=== PATIENT | female | born 1985 | race African-American/Black ===

== ENCOUNTER 2017-02-04 06:10 | Day surgery (SDC) | payer OTHER ==
[2017-01-22 11:22] VITALS: BMI 28.8
[2017-02-04] MEDS ORDERED: BUPIVACAINE HCL/PF 2.5 MG/ML - 30 ML VIAL IJ ONE (07:09)
[2017-02-04] MEDS ORDERED: BUPIVACAINE HCL/EPINEPHRINE/PF 30 ML VIAL IJ ONE (07:09)
[2017-02-04] MEDS ORDERED: EPINEPHrine 1:1,000 1 MG/1 ML - 30ML VIAL (INJECTION) ONE (07:09)
[2017-02-04] MEDS ORDERED: MIDAZOLAM HCL 2 MG/2 ML SINGLE DOSE VIAL ONE (07:22)
[2017-02-04] MEDS ORDERED: PROPOFOL 20 ML ONE ×3 (07:22→08:32)
[2017-02-04] MEDS ORDERED: LIDOCAINE HCL/PF 2% SDV 5ML VIAL ONE ×2 (07:24→08:31)
[2017-02-04] MEDS ORDERED: DEXAMETHASONE SOD PHOSPHATE 4 MG/1 ML VIAL ONE (07:43)
[2017-02-04] MEDS ORDERED: ONDANSETRON 4 MG/2 ML VIAL ONE ×2 (07:43→09:04)
[2017-02-04] MEDS ORDERED: KETOROLAC TROMETHAMINE 30 MG/1 ML VIAL ONE (07:47)
[2017-02-04] MEDS ORDERED: SUCCINYLCHOLINE CHLORIDE 200 MG/10 ML VIAL ONE (07:58)
[2017-02-04] MEDS ORDERED: DESFLURANE GAS 240 ML BOTTLE IH ONE (08:33)
[2017-02-04] MEDS ORDERED: oxyCODONE HCL 5 MG TABLET PO PRN (09:02)
[2017-02-04] MEDS ORDERED: PROMETHAZINE HCL 25 MG/1 ML VIAL IVPUSH PRN (09:02)
[2017-02-04] MEDS ORDERED: LACTATED RINGERS SOLUTION 1,000 ML IV SCH (09:15)
[2017-02-04 12:13] VITALS: PULSE 65
[2017-02-04 12:20] VITALS: BP 124/72; TEMP 98.1
--- NOTE | 2017-02-04 13:57 | OP ---
DATE OF OPERATION: 02/04/2017 PREOPERATIVE DIAGNOSIS: Right knee medial meniscal tear. POSTOPERATIVE DIAGNOSIS: Right knee medial meniscal tear. PROCEDURE: Right knee arthroscopy with partial medial meniscectomy. SURGEON: William Schmidt MD [employer] TENDER: Meenu Lopez ANESTHESIA TYPE: General. POSTOPERATIVE CONDITION: Stable. COMPLICATIONS: None. TOURNIQUET TIME: Forty-four minutes. INDICATION: This is a pleasant 31-year-old female who is having right-sided medial knee pain. After an MRI demonstrated a medial meniscal tear, treatment options were discussed including nonoperative versus operative management. Operative risks were reviewed in detail including bleeding, infection, neurovascular injury, need for further surgery, postoperative pain and stiffness, progression of osteoarthritis. We discussed medical risks such as heart attack, stroke, DVT, PE and . The patient voiced understanding. She elected to proceed. DESCRIPTION OF PROCEDURE: The patient was brought to the operating room where general anesthesia was administered. The right lower extremity was then prepped and draped in the usual sterile fashion. A preoperative dose of antibiotics was given and the usual timeout procedure was performed. The portal sites were then marked out and injected subcutaneously with 0.25% Marcaine. The lateral portal was now incised using an 11 blade. The arthroscope was passed into the knee. Examination of the patellofemoral joint demonstrated no significant pathology. The arthroscope was then passed down the trochlea into the notch. Here, the ACL and PCL were visualized to be intact. The arthroscope was now passed into the medial compartment. Here, under spinal needle localization, a medial portal was established. The lateral compartment was then examined, demonstrating a slightly hypermobile lateral meniscus. However, there was no tearing seen. There was no cartilage lesion seen. Examination of the medial compartment demonstrated that there were no gross abnormalities. Probing of the meniscus demonstrated undersurface tearing along the body and posterior horn. There was some superficial fraying noted of the cartilage surfaces. The meniscus tear was now debrided using a combination of meniscal biters and a shaver down to a stable base. At this point, the excess fluid was withdrawn from the knee. The portals were sutured using 3-0 nylon. Sterile dressings were placed. The patient was extubated. She was transferred to the recovery room in stable condition. It should be noted that the tourniquet was let down following completion of the . Timoteo [id number]
== END 2017-02-04 12:21 | disposition home or self-care (01) ==
LOC: FASU 06:10
PROVIDERS: ATTEND Orthopaedic Surgery Sports Medicine
PROC: 0SBC4ZZ Excision of Right Knee Joint, Percutaneous Endoscopic Approach (ICD-10-PCS; principal; 2017-02-04 07:55)
DX: S83.241A Other tear of medial meniscus, current injury, right knee, initial encounter (principal); X58.XXXA Exposure to other specified factors, initial encounter; Y93.9 Activity, unspecified; Y92.9 Unspecified place or not applicable
CPT/HCPCS: 84703; 94760